=== PATIENT | male | born 1980 | race Caucasian/White ===

== ENCOUNTER 2017-10-28 15:55 | Inpatient (IN) | payer MEDICAID, SELFPAY ==
[2017-10-28 16:20] VITALS: BP 118/72; PULSE 54; RESP 16; TEMP 36.4; O2SAT 97; BMI 32.1
[2017-10-28 16:24] VITALS: BMI 32.2
--- NOTE | 2017-10-28 16:30 | PCM.HP.STD ---
Problem List (1) Heroin abuse Status: Acute (2) Heroin withdrawal Status: Acute History of Present Illness Date of Admission: 10/28/17 The patient is a 37 year old M [] Past Medical History Allergies No Known Allergies Allergy (Verified 10/28/17 16:19) Smoking Status: Current every day smoker Patient Problems: Active and Suspected Problems Heroin abuse (Acute) Heroin withdrawal (Acute) - Physical Exam Vital Signs Temp Pulse Resp BP Pulse Ox 97.5 F L 54 L 16 118/72 97 10/28/17 16:20 10/28/17 16:20 10/28/17 16:20 10/28/17 16:20 10/28/17 16:20 Oxygen Delivery Method Room Air Weight: 101.741 kg Body Mass Index (BMI) 32.1 Assessment/Plan Active and Suspected Problems Heroin abuse (Acute) Heroin withdrawal (Acute)
[2017-10-28] MEDS: Nicotine Polacrilex 2 MG GUM PO (17:29)
[2017-10-28] MEDS: Buprenorphine HCl 2 MG TAB.SUBL SL (17:30)
[2017-10-28] MEDS: cloNIDine HCl 0.1 MG Tablet PO (17:30)
--- NOTE | 2017-10-28 17:30 | HP.PCM_ITS ---
Problem List (1) Tobacco dependence Status: Chronic (2) Heroin abuse Status: Acute (3) Heroin withdrawal Status: Acute History of Present Illness Date of Admission: 10/28/17 Chief Complaint: Hot and cold flashes The patient is a 37 year old M with past medical history sent on for heroine dependence who presented with hot and cold flashes. Patient reports IV heroin use his last use being almost 24 hours prior to his admission. He also reports abdominal cramps as well as restless leg syndrome. His assessment and admission was consistent with acute opioid withdrawal admitted to a regular [facility] floor for stabilization. Past Medical History Past Medical History (Chronic Problems): Chronic Problems Tobacco dependence (Chronic) Allergies No Known Allergies Allergy (Verified 10/28/17 16:19) Smoking Status: Current every day smoker - *Family History Maternal History Items: No pertinent history Review of Systems Constitutional: Reports: Chills, Malaise HEENT: Denies: Head Aches, Sinus Congestion, Sinus Drainage Cardiovascular: Denies: Chest Pain, Orthopnea, Palpitations, Paroxysmal Noc. Dyspnea Respiratory: Denies: Cough, Shortness of breath at rest, Shortness of breath upon exertion, Sputum production Gastrointestinal: Reports: Abdominal Pain, Nausea Genitourinary: Denies: Dysuria, Frequency, Hematuria, Urgency Musculoskeletal: Denies: Joint Pain, Joint Tenderness Skin: Denies: Rash Neurological: Denies: Focal weakness, Numbness, Tingling Psychiatric: Reports: Anxiety. Denies: Homicidal Ideations, Suicidal Ideations Hematologic/ Lymphatic: Denies: Easy Bruising, Easy Bleeding VTE Information - Inpt Only VTE Present on Admission: No VTE Mechan Device Prophylaxis: None VTE Pharm Prophylaxis ordered?: Yes Patient Problems: Active and Suspected Problems Heroin abuse (Acute) Heroin withdrawal (Acute) Objective: GENERAL: cooperative HEENT: Clear conjunctiva, NECK; supple, normal thyroid, CHEST: Diminished to auscultation bilaterally, HEART: Regular S1 S2, no audible murmurs ABDOMEN: soft, non-tender, normoactive bowel sounds, RECTAL: deferred EXTREMITIES: No edema, no clubbing, no cyanosis. SUPERVISOR INSTRUMENT MAINTENANCE: Awake,no lateralizing signs. SKIN: No rash - Physical Exam Vital Signs Temp Pulse Resp BP Pulse Ox 97.5 F L 54 L 16 118/72 97 10/28/17 16:20 10/28/17 16:20 10/28/17 16:20 10/28/17 16:20 10/28/17 16:20 Oxygen Delivery Method Room Air Weight: 101.741 kg Body Mass Index (BMI) 32.1 Assessment/Plan Active and Suspected Problems Heroin abuse (Acute) Heroin withdrawal (Acute) This a 37-year-old gentleman with history of heroine dependence presented with acute opiate withdrawal 1. Acute opioid withdrawal: Patient has been admitted to regular nursing floor for medical stabilization using the [facility] medical stabilization protocol. 2. Heroine dependence patient was counseled on cessation 3. Tobacco dependence counseled on cessation, offered nicotine patch for tobacco cravings 4. Anxiety disorder patient admits to occasional use of Xanax 5. Obesity with BMI of 32.2; weight loss advised 6. DVT prophylaxis; low risk did encourage early ambulation Code Visit Inpatient E&M: 13652 [facility] Hosp L3
[2017-10-28] MEDS: LORazepam 1 MG Tablet PO ×2 (17:32→21:42)
[2017-10-28 21:35] VITALS: BP 106/56; PULSE 53; RESP 16; TEMP 37
[2017-10-28 21:38] VITALS: O2SAT 94
[2017-10-28] MEDS: Methocarbamol 750 MG Tablet PO (21:44)
[2017-10-29 02:09] VITALS: BP 116/74; PULSE 58; RESP 16; TEMP 36.8; O2SAT 96
[2017-10-29] MEDS: Acetaminophen 325 MG Tablet 650 MG PO (02:14)
[2017-10-29] MEDS: Buprenorphine HCl 2 MG TAB.SUBL SL ×3 (02:14→18:28)
[2017-10-29 06:07] VITALS: BP 152/94; PULSE 67; RESP 18; TEMP 36.7
[2017-10-29] MEDS: LORazepam 1 MG Tablet PO ×4 (06:10→22:38)
[2017-10-29] MEDS: cloNIDine HCl 0.1 MG Tablet PO ×3 (06:10→22:39)
--- NOTE | 2017-10-29 07:21 | PCM.PN.HOSP ---
Patient Problems: Active and Suspected Problems Heroin abuse (Acute) Heroin withdrawal (Acute) Subjective: Seen complains of intermittent chills. Also complains of feeling agitated Objective: GENERAL: cooperative HEENT: Clear conjunctiva, NECK; supple, normal thyroid, CHEST: Diminished to auscultation bilaterally, HEART: Regular S1 S2, no audible murmurs ABDOMEN: soft, non-tender, normoactive bowel sounds, RECTAL: deferred EXTREMITIES: No edema, no clubbing, no cyanosis. PHARMACY TECH CUSTOMER SERVICE: Awake,no lateralizing signs. SKIN: No rash Vitals/I&O's: Vital Signs Temp Pulse Resp BP Pulse Ox 98.0 F 67 18 152/94 H 96 10/29/17 06:07 10/29/17 06:07 10/29/17 06:07 10/29/17 06:07 10/29/17 02:09 Oxygen Delivery Method Room Air Weight: 101.741 kg Body Mass Index (BMI) 32.1 Intake and Output for Last 24 Hours 10/27/17 10/28/17 10/29/17 23:59 23:59 23:59 Intake Total 220 / 220 Balance 220 / 220 Laboratory Results 10/29/17 06:56: WBC Pending, RBC Pending, Hgb Pending, Hct Pending, MCV Pending, MCH Pending, MCHC Pending, RDW Pending, RDW Differential Pending, Plt Count Pending, Neut % (Auto) Pending, Absolute Neuts (auto) Pending, Total Counted Pending 10/29/17 06:56: Sodium Pending, Potassium Pending, Chloride Pending, Carbon Dioxide Pending, Anion Gap Pending, BUN Pending, Creatinine Pending, Est GFR (MDRD) Af Amer Pending, Est GFR (MDRD) Non-Af Pending, BUN/Creatinine Ratio Pending, Glucose Pending, Calcium Pending Current Medications Acetaminophen (Tylenol) 650 mg PO Q6H PRN PRN PRN Reason: Mild Pain (1-3)/Temp > 100.7 F Last Admin: 10/29/17 02:14 Dose: 650 mg Bisacodyl (Dulcolax) 5 mg PO DAILY PRN PRN PRN Reason: Constipation Buprenorphine HCl (Buprenorphine Hcl) 4 mg SL Q8H MORALES PRN Reason: Taper Stop: 10/31/17 21:59 Last Admin: 10/29/17 02:14 Dose: 4 mg Clonidine (Catapres) 0.1 mg PO Q4 [facility] Last Admin: 10/29/17 06:10 Dose: 0.1 mg Dicyclomine HCl (Bentyl) 20 mg PO Q6H PRN PRN PRN Reason: abdominal discomfort Lorazepam (Ativan) 1 mg PO Q4H MORALES PRN Reason: Taper Stop: 10/31/17 21:59 Last Admin: 10/29/17 06:10 Dose: 1 mg Magnesium Hydroxide (Milk Of Magnesia) 30 ml PO DAILY PRN PRN PRN Reason: Constipation Methocarbamol (Methocarbamol) 750 mg PO Q6H PRN PRN PRN Reason: Muscle Aches Last Admin: 10/28/17 21:44 Dose: 750 mg Nicotine (Nicoderm Cq (Pbkc)) 21 mg TRANSDERM. DAILY [facility] Last Admin: 10/28/17 17:27 Dose: 21 mg Nicotine Polacrilex (Rugby Nicotine (Bkc)) 2 mg PO Q2H PRN PRN PRN Reason: SMOKING CESSATION Last Admin: 10/28/17 17:29 Dose: 2 mg Nutritional Formula (Lactose Free) (Ensure Enlive) 120 ml PO 4X/DAY [facility] Last Admin: 10/28/17 21:44 Dose: 120 ml Pramipexole Dihydrochloride (Mirapex) 0.25 mg PO Q12H PRN PRN PRN Reason: Restless legs Psyllium Hydrophilic Mucilloid (Metamucil) 1 packet PO DAILY PRN PRN PRN Reason: CONSTIPATION Quetiapine Fumarate (Seroquel) 25 mg PO Q6H PRN PRN PRN Reason: Moderate Anxiety (score 2/3) Assessment/Plan Active and Suspected Problems Heroin abuse (Acute) Heroin withdrawal (Acute) This a 37-year-old gentleman with history of heroine dependence presented with acute opiate withdrawal 1. Acute opioid withdrawal: Patient has been admitted to regular nursing floor for medical stabilization using the [facility] medical stabilization protocol. 2. Heroine dependence patient was counseled on cessation 3. Tobacco dependence counseled on cessation, offered nicotine patch for tobacco cravings 4. Anxiety disorder patient admits to occasional use of Xanax 5. Obesity with BMI of 32.2; weight loss advised 6. DVT prophylaxis; low risk did encourage early ambulation Code Visit Inpatient E&M: 08394 Subs Hosp L3
[2017-10-29 07:55] LABS: Anion Gap 7 (5-15); BUN 12 mg/dL (7-18); BUN/Creat Ratio 14.7 RATIO (10-20); Calcium,Total 8.9 mg/dL (8.5-10.1); Chloride 107 mmol/L (98-107); Creatinine, Serum 0.81 mg/dL (0.70-1.30); EST Glomerular Filtration Rate 113 mL/min (>60); Est Glom Filt Rate - Afr Amer 137 mL/min (>60); Estimated Creatinine Clearance 128.93 ml/min; Glucose 112 mg/dL (74-106); Potassium 4.4 mmol/L (3.5-5.1); Sodium Level 135 mmol/L (136-145)
[2017-10-29 10:25] VITALS: BP 133/83; PULSE 54; RESP 16; TEMP 36.7; O2SAT 96
[2017-10-29 13:13] LABS: Hematocrit 46.5 % (40-54); Hemoglobin 16.7 g/dl (13.0-16.5); Mean Corp Hgb Conc 35.9 g/gl (32-36); Mean Corpuscular Hgb 32.4 pg (27.0-32.0); Mean Corpuscular Volume 90.1 fL (80-94); RBC Distribution Width CV 11.8 % (11.6-14.6); Red Blood Count 5.16 M/mm3 (4.6-6.2); White Blood Count 7.7 K/mm3 (4.4-11.0)
[2017-10-29 13:14] LABS: Absolute Lymphocyte Count 1.73 X10^3/ul (0.83-4.51); Absolute Neutrophil Count 5.2 X10^3/uL (2.0-7.7); Basophil# 0.03 X10^3/uL; Basophil% 0.4 % (0-1); Eosinophil# 0.12 X10^3/uL; Eosinophils% 1.6 % (0-5); Lymphocyte # 1.73 X10^3/ul (4.0); Lymphocyte % 22.5 % (19-41); Monocyte# 0.57 X10^3/uL; Monocyte% 7.4 % (0-10); Neutrophil # 5.22 X10^3/uL (2.7-7.7); Neutrophil % 67.8 % (47-70); POSITIVE COUNT NO; POSITIVE DIFFERENTIAL NO; POSITIVE MORPHOLOGY NO; Platelet Count 182 K/mm3 (150-450); RBC Distribution Width SD 38.2 fl (35.1-43.9)
[2017-10-29 14:50] VITALS: BP 130/77; PULSE 66; RESP 16; TEMP 36.9
--- NOTE | 2017-10-29 15:56 | CHAPLAIN ---
Type of Pastoral Visit _x__ Initial Visit ___ Follow-up Visit ___ On-call Visit ___ General Patient Visit ___ Spiritual Assessment ___ Family Conference ___ Bereavement ___ Rapid Response ___ Code Blue ___ Other (describe below) Pastoral Care Referral From _x__ Patient ___ Family ___ Nurse ___ Physician ___ Cavalry Scout ___ Bingo Worker ___ Other (describe below) Sacrament/Intervention _x__ Active listening ___ Anointing ___ Tenriism ___ Bereavement ___ Communion ___ Rosita exploration ___ ___ Life review _x__ Prayer ___ Reconciliation ___ Sacrament of Sick _x__ Supportive presence ___ Wedding ___ Other (describe below) Pastoral Comments patient reports that his support consists of his family service caseworker/counselor; pt says his closest relative is a brother living in [place]; pt has a three year old that does not live with him; pt says that he wants this to work this time
[2017-10-29 18:25] VITALS: BP 122/75; PULSE 53; RESP 16; TEMP 36.9
[2017-10-29 22:00] VITALS: BP 119/66; PULSE 69; RESP 16; TEMP 37.1
[2017-10-30] VITALS (8 sets, daily range): BP systolic 107–124; BP diastolic 58–77; PULSE 43–69; RESP 16–18; TEMP 36.4–37.1; O2SAT 95–96
[2017-10-30] MEDS: Buprenorphine HCl 2 MG TAB.SUBL SL ×3 (02:09→22:12)
[2017-10-30] MEDS: LORazepam 1 MG Tablet PO ×4 (02:11→22:12)
[2017-10-30] MEDS: cloNIDine HCl 0.1 MG Tablet PO ×4 (02:13→17:09)
[2017-10-30 07:08] LABS: HEPATITIS B SURFACE AG Negative (Negative); Hepatitis A IgM Antibody Negative (Negative); Hepatitis B Core AB IgM Negative (Negative)
--- NOTE | 2017-10-30 07:31 | PN_ITS ---
Patient Problems: Active and Suspected Problems Heroin abuse (Acute) Heroin withdrawal (Acute) Subjective: Patient seen finally admit to some improvement in his clinical condition. Objective: GENERAL: cooperative HEENT: Clear conjunctiva, NECK; supple, normal thyroid, CHEST: Diminished to auscultation bilaterally, HEART: Regular S1 S2, no audible murmurs ABDOMEN: soft, non-tender, normoactive bowel sounds, RECTAL: deferred EXTREMITIES: No edema, no clubbing, no cyanosis. CENTRAL PROCESSING TECHNICIAN: Awake,no lateralizing signs. SKIN: No rash Vitals/I&O's: Vital Signs Temp Pulse Resp BP Pulse Ox 97.7 F L 61 16 116/71 95 10/30/17 06:00 10/30/17 06:00 10/30/17 06:00 10/30/17 06:00 10/30/17 06:00 Oxygen Delivery Method Room Air Weight: 101.7 kg Body Mass Index (BMI) 32.1 Intake and Output for Last 24 Hours 10/28/17 10/29/17 10/30/17 23:59 23:59 23:59 Intake Total 220 / 220 120 / 120 Balance 220 / 220 120 / 120 Laboratory Results 10/29/17 06:56: WBC Cancelled, Corrected WBC Cancelled, RBC Cancelled, Hgb Cancelled, Hct Cancelled, MCV Cancelled, MCH Cancelled, MCHC Cancelled, RDW Cancelled, RDW Differential Cancelled, Plt Count Cancelled, MPV Cancelled, Immature Gran % (Auto) Cancelled, Neut % (Auto) Cancelled, Lymph % (Auto) Cancelled, Gibson % (Auto) Cancelled, Eos % (Auto) Cancelled, Baso % (Auto) Cancelled, Immature Gran # (Auto) Cancelled, Absolute Neuts (auto) Cancelled, Absolute Lymphs (auto) Cancelled, Absolute Monos (auto) Cancelled, Total Counted Cancelled, Neutrophils % (Manual) Cancelled, Band Neutrophils % Cancelled, Lymphocytes % (Manual) Cancelled, Monocytes % (Manual) Cancelled, Eosinophils % (Manual) Cancelled, Basophils % (Manual) Cancelled, Metamyelocytes % Cancelled, Myelocytes % Cancelled, Promyelocytes % Cancelled, Blast Cells % Cancelled, Plasma Cell % (Manual) Cancelled, Other Cells % Cancelled, Lymphocytes # Cancelled, Nucleated RBCs/100 WBC Cancelled, Differential Comment Cancelled, Diff Path Review Cancelled, Hypersegmented Neuts Cancelled, Atypical Lymphocytes Cancelled, Reactive Lymphocytes Cancelled , Smudge Cells Cancelled, Eosinophilia # Cancelled, Basophilia # Cancelled, Toxic Granulation Cancelled, Dohle Bodies Cancelled, Mati Rods Cancelled, Platelet Estimate Cancelled, Plt Morphology Comment Cancelled, RBC Morphology Cancelled, Polychromasia Cancelled, Hypochromasia Cancelled, Poikilocytosis Cancelled, Basophilic Stippling Cancelled, Anisocytosis Cancelled, Microcytosis Cancelled, Macrocytosis Cancelled, Spherocytes Cancelled, Sickle Cells Cancelled , Target Cells Cancelled, Tear Drop Cells Cancelled, Ovalocytes Cancelled, Stomatocytes Cancelled, [place] Bodies Cancelled, [place] Cells Cancelled, Bite Cells Cancelled, Acanthocytes (Spur) Cancelled, Rouleaux Cancelled, Schistocytes Cancelled 10/29/17 06:56: Sodium 135 L, Potassium 4.4, Chloride 107, Carbon Dioxide 21.0, Anion Gap 7, BUN 12, Creatinine 0.81, Estim Creat Clear Calc 128.93, Est GFR ( MDRD) Af Amer 137, Est GFR (MDRD) Non-Af 113, BUN/Creatinine Ratio 14.7, Glucose 112 H, Calcium 8.9 10/29/17 08:25: WBC Cancelled, Corrected WBC Cancelled, RBC Cancelled, Hgb Cancelled, Hct Cancelled, MCV Cancelled, MCH Cancelled, MCHC Cancelled, RDW Cancelled, RDW Differential Cancelled, Plt Count Cancelled, MPV Cancelled, Immature Gran % (Auto) Cancelled, Neut % (Auto) Cancelled, Lymph % (Auto) Cancelled, Gibson % (Auto) Cancelled, Eos % (Auto) Cancelled, Baso % (Auto) Cancelled, Immature Gran # (Auto) Cancelled, Absolute Neuts (auto) Cancelled, Absolute Lymphs (auto) Cancelled, Absolute Monos (auto) Cancelled, Total Counted Cancelled, Neutrophils % (Manual) Cancelled, Band Neutrophils % Cancelled, Lymphocytes % (Manual) Cancelled, Monocytes % (Manual) Cancelled, Eosinophils % (Manual) Cancelled, Basophils % (Manual) Cancelled, Metamyelocytes % Cancelled, Myelocytes % Cancelled, Promyelocytes % Cancelled, Blast Cells % Cancelled, Plasma Cell % (Manual) Cancelled, Other Cells % Cancelled, Lymphocytes # Cancelled, Nucleated RBCs/100 WBC Cancelled, Differential Comment Cancelled, Diff Path Review Cancelled, Hypersegmented Neuts Cancelled, Atypical Lymphocytes Cancelled, Reactive Lymphocytes Cancelled , Smudge Cells Cancelled, Eosinophilia # Cancelled, Basophilia # Cancelled, Toxic Granulation Cancelled, Dohle Bodies Cancelled, Mati Rods Cancelled, Platelet Estimate Cancelled, Plt Morphology Comment Cancelled, RBC Morphology Cancelled, Polychromasia Cancelled, Hypochromasia Cancelled, Poikilocytosis Cancelled, Basophilic Stippling Cancelled, Anisocytosis Cancelled, Microcytosis Cancelled, Macrocytosis Cancelled, Spherocytes Cancelled, Sickle Cells Cancelled , Target Cells Cancelled, Tear Drop Cells Cancelled, Ovalocytes Cancelled, Stomatocytes Cancelled, [place] Bodies Cancelled, Laine Cells Cancelled, Bite Cells Cancelled, Acanthocytes (Spur) Cancelled, Rouleaux Cancelled, Schistocytes Cancelled 10/29/17 12:30: Hepatitis A IgM Ab Pending, Hep Bs Antigen Pending, Hep B Core IgM Ab Pending, Hepatitis C Ab (EIA) Pending 10/29/17 12:30: WBC 7.7, RBC 5.16, Hgb 16.7 H, Hct 46.5, MCV 90.1, MCH 32.4 H, MCHC 35.9, RDW 11.8, RDW Differential 38.2, Plt Count 182, MPV 10.0, Immature Gran % (Auto) 0.300, Neut % (Auto) 67.8, Lymph % (Auto) 22.5, Gibson % (Auto) 7.4 , Eos % (Auto) 1.6, Baso % (Auto) 0.4, Absolute Neuts (auto) 5.2, Absolute Lymphs (auto) 1.73, Total Counted Not Reportable Current Medications Acetaminophen (Tylenol) 650 mg PO Q6H PRN PRN PRN Reason: Mild Pain (1-3)/Temp > 100.7 F Last Admin: 10/29/17 02:14 Dose: 650 mg Bisacodyl (Dulcolax) 5 mg PO DAILY PRN PRN PRN Reason: Constipation Buprenorphine HCl (Buprenorphine Hcl) 2 mg SL Q8H MORALES PRN Reason: Taper Stop: 10/31/17 21:59 Last Admin: 10/30/17 02:09 Dose: 2 mg Clonidine (Catapres) 0.1 mg PO Q4 [facility] Last Admin: 10/30/17 06:59 Dose: Not Given Dicyclomine HCl (Bentyl) 20 mg PO Q6H PRN PRN PRN Reason: abdominal discomfort Lorazepam (Ativan) 1 mg PO Q6H MORALES PRN Reason: Taper Stop: 10/31/17 21:59 Last Admin: 10/30/17 02:11 Dose: 1 mg Magnesium Hydroxide (Milk Of Magnesia) 30 ml PO DAILY PRN PRN PRN Reason: Constipation Methocarbamol (Methocarbamol) 750 mg PO Q6H PRN PRN PRN Reason: Muscle Aches Last Admin: 10/28/17 21:44 Dose: 750 mg Nicotine (Nicoderm Cq (Pbkc)) 21 mg TRANSDERM. DAILY [facility] Last Admin: 10/29/17 10:27 Dose: 21 mg Nicotine Polacrilex (Rugby Nicotine (Bkc)) 2 mg PO Q2H PRN PRN PRN Reason: SMOKING CESSATION Last Admin: 10/28/17 17:29 Dose: 2 mg Pramipexole Dihydrochloride (Mirapex) 0.25 mg PO Q12H PRN PRN PRN Reason: Restless legs Psyllium Hydrophilic Mucilloid (Metamucil) 1 packet PO DAILY PRN PRN PRN Reason: CONSTIPATION Quetiapine Fumarate (Seroquel) 25 mg PO Q6H PRN PRN PRN Reason: Moderate Anxiety (score 2/3) Assessment/Plan Active and Suspected Problems Heroin abuse (Acute) Heroin withdrawal (Acute) This a 37-year-old gentleman with history of heroine dependence presented with acute opiate withdrawal 1. Acute opioid withdrawal: Patient has been admitted to regular nursing floor for medical stabilization using the [facility] medical stabilization protocol. 2. Heroine dependence patient was counseled on cessation 3. Tobacco dependence counseled on cessation, offered nicotine patch for tobacco cravings 4. Anxiety disorder patient admits to occasional use of Xanax 5. Obesity with BMI of 32.2; weight loss advised 6. DVT prophylaxis; low risk did encourage early ambulation Code Visit Inpatient E&M: 57568 Subs Hosp L2
[2017-10-30 13:15] LABS: Hep C Antibodies >11.0 s/co ratio (0.0-0.9)
[2017-10-30] MEDS: Methocarbamol 750 MG Tablet PO (17:09)
[2017-10-31 02:00] VITALS: BP 108/61; PULSE 43; RESP 16; TEMP 36.8
[2017-10-31 05:44] VITALS: BP 114/62; PULSE 44; RESP 16; TEMP 36.6
[2017-10-31] MEDS: LORazepam 1 MG Tablet PO ×2 (05:46→14:26)
--- NOTE | 2017-10-31 07:32 | PCM.DC ---
- Discharge Diagnoses Current Active Problems: Current Active and Chronic Problems Heroin abuse (Acute) Heroin withdrawal (Acute) Tobacco dependence (Chronic) You will use the following diet at home:: No restrictions Allergies/Adverse Reactions: Allergies No Known Allergies Allergy (Verified 10/28/17 16:19) Primary Care Physician: Care Physician,No Primary [Primary Care Provider] - Proposed Discharge Date: 10/31/17
--- NOTE | 2017-10-31 07:33 | PCM.DC.SUM ---
Discharge Date and Diagnosis - Problem List Patient Problems: Active and Suspected Problems Heroin abuse (Acute) Heroin withdrawal (Acute) Date of Admission: 10/28/17 Date of Discharge: 10/31/17 - Primary Discharge Diagnosis Active and Suspected Problems Heroin abuse (Acute) Heroin withdrawal (Acute) - Secondary Discharge Diagnosis Chronic Problems Tobacco dependence (Chronic) Hospital Course and Treatment Summary of Care Provided: This a 37-year-old gentleman with history of heroine dependence presented with acute opiate withdrawal 1. Acute opioid withdrawal: Patient has been admitted to regular nursing floor for medical stabilization using the [facility] medical stabilization protocol. 2. Heroine dependence patient was counseled on cessation 3. Tobacco dependence counseled on cessation, offered nicotine patch for tobacco cravings 4. Anxiety disorder patient admits to occasional use of Xanax 5. Obesity with BMI of 32.2; weight loss advised 6. DVT prophylaxis; low risk did encourage early ambulation 7. Newly diagnosed hepatitis C infection patient was informed of the results instructed to follow-up with PCP for initiation of treatment Discharge Diet: No Restrictions Primary Care Physician: Care Physician,No Primary [Primary Care Provider] - Disposition: Home Minutes spent on discharge:: 35 Patient Condition:: Stable Meaningful Use Info Meaningful Use Diagnoses (Choose all that apply): None applicable Code Visit Inpatient E&M: 32219 Disch Hosp
[2017-10-31 09:52] VITALS: BP 130/77; PULSE 61; RESP 16; TEMP 37.1; O2SAT 96
[2017-10-31 09:54] VITALS: BP 130/77; PULSE 66; RESP 16; TEMP 37.1
[2017-10-31] MEDS: cloNIDine HCl 0.1 MG Tablet PO (10:01)
[2017-10-31] MEDS: Buprenorphine HCl 2 MG TAB.SUBL SL (10:01)
[2017-10-31 14:00] VITALS: BP 125/75; PULSE 50; RESP 18; TEMP 36.6
== END 2017-10-31 14:45 | disposition home or self-care (01) | DRG 434 ==
PROVIDERS: Admitting Provider Internal Medicine; Visit Provider Internal Medicine
DX: F11.23 Opioid dependence with withdrawal (principal); B19.20 Unspecified viral hepatitis C without hepatic coma; E66.9 Obesity, unspecified; F17.200 Nicotine dependence, unspecified, uncomplicated; Z68.32 Body mass index [BMI] 32.0-32.9, adult; F41.9 Anxiety disorder, unspecified
CPT/HCPCS: 36415; 80048; 80074; 85025; 97802

== ENCOUNTER 2022-10-06 17:34 | Emergency (ER) | payer MEDICAID, SELFPAY ==
[2022-10-06 17:35] VITALS: BP 137/78; PULSE 86; RESP 14; TEMP 36.1; O2SAT 93; BMI 29.2
--- NOTE | 2022-10-06 20:37 | CM.ED ---
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 SW to follow up. IVIS met with patient in waiting area and introduced herself as [facility] Can Tender. SW explained due to [facility] having limited bed availability, SW could assist him in contacting the treatment navigator to review alternative detox options. Patient stated he was told he could come in to [facility] and would be admitted for detox by staff at [facility] named Karen. SW explained bed availability is constantly changing, however, SW could assist patient in finding alternative care. Patient stated he was frustrated with the situation but was receptive towards SW contacting the navigator to inquire about him. SW contacted Treatment Navigator and reviewed patient's concerns regarding detox and inquired about staff named Karen. Leonardo, treatment navigator, states she does not have information for patient nor is she aware of staff by that name. Leonardo provided SW with information for [facility] in [place] for patient to detox. IVIS contacted [facility] to inquire about ability detox admissions. Staff informed SW patient could present to the Urgent Care tomorrow from 8-4pm to be admitted for detox. SW met with patient to provide him with information regarding [facility]. Patient declined information and stated he already knows about that location. Patient states, everything happens for a reason. Patient states he will plan to go to [facility] tomorrow but needs to get a ride home. SW reviewed patient's insurance and [facility] and explained they allow for transportation from ED same day. Patient to set up transportation home. Plan: patient waiting on ride home, declined resources Joseline Schmitt MSW, LAZARA
--- NOTE | 2022-10-06 21:31 | ED.RN ---
Social work gave patients resources on places that have beds for detox. pt setting up a ride to go to [place].
== END 2022-10-06 21:42 | disposition left against medical advice (07) ==
PROVIDERS: Emergency Provider Student in an Organized Health Care Education/Training Program; Visit Provider Student in an Organized Health Care Education/Training Program
DX: F11.10 Opioid abuse, uncomplicated (principal)